=== PATIENT | male | born 1970 | race Two or more races ===

== ENCOUNTER 2022-08-15 21:59 | Emergency (ER) | payer OTHER ==
[~2022-08-15] VITALS: Ht 170.2 cm; Wt 92.5 kg
[2022-08-15] MEDS ORDERED: PANTOPRAZOLE SO20 MG PO (22:10)
[2022-08-15] MEDS ORDERED: CRESTOR5 MG PO (22:11)
[2022-08-15] MEDS ORDERED: D3 + K2 DOTS 11 EACH PO (22:11)
[2022-08-16] MEDS ORDERED: ZYNCOF 20-400120 ML PO (00:44)
== END 2022-08-16 00:57 ==
LOC: ER 21:59
DX: B34.9 Viral infection, unspecified (principal); Z20.822 Contact with and (suspected) exposure to COVID-19